=== PATIENT | female | born 1950 | race Caucasian/White ===

== ENCOUNTER 2016-08-10 08:09 | Day surgery (SDC) | payer MEDICARE ==
[~2016-08-10 08:09] MED LIST: FENTANYL 250 MCG/5 ML AMP IV PRN; IV START KIT ONE; LACTATED RINGERS 1,000 ML IV SCH; LACTATED RINGERS 1,000 ML ONE; MIDAZOLAM HCL 5 MG/5 ML VIAL IV PRN
[2016-08-10] MEDS ORDERED: MIDAZOLAM HCL 5 MG/5 ML VIAL ONE (08:19)
[2016-08-10] MEDS ORDERED: FENTANYL 5 ML ONE (08:20)
--- NOTE | 2016-08-12 12:13 | SURGPATH ---
[facility] [address] [place] [id number] Patient Name: TITI MCLAUGHLIN MR#: [id number] : 1950 Gender: F Specimen #: [id number] Collected: 08/10/2016 Received: 08/11/2016 Reported: 08/12/2016 Submitting Phys: TOMÁS BORJA Copy To Phys: [facility] Clinical History / Pre-Operative Diagnosis: HEMOCCULT + STOOL; HISTORY OF ADENOMATOUS POLYPECTOMIES Specimen Source / Surgical Procedure Performed: #1-DESCENDING COLON POLYP AT 35 CM; #2-HEPATIC FLEXURE COLON POLYP X2; #3-SIGMOID POLYP AT 15 CM; #4-RECTAL POLYP AT 10 CM Interpretation: 1. DESCENDING COLON POLYP AT 35 CM: - HYPERPLASTIC POLYP. 2. HEPATIC FLEXURE POLYPS: - TUBULAR ADENOMAS. 3. SIGMOID POLYP AT 15 CM: - HYPERPLASTIC POLYP. 4. RECTAL POLYP AT 10 CM: - HYPERPLASTIC POLYP. Electronically Signed Out Kimberly Lutz M.D. Gross Description: #1 The specimen is received in a formalin filled container labeled with the patient's name and "descending colon polyp at 35 cm". A polypoid monsivais biopsy is 0.3 cm. Totally embedded in cassette #1. #2 The specimen is received in a formalin filled container labeled with the patient's name and "hepatic flexure colon polyps x2". Three monsivais biopsies are 0.3, 0.4 and 0.5 cm. Totally embedded in cassette #2. #3 The specimen is received in a formalin filled container labeled with the patient's name and "sigmoid polyp at 15 cm". A polypoid red-monsivais biopsy is 0.4 x 0.4 x 0.3 cm. Totally embedded in cassette #3. #4 The specimen is received in a formalin filled container labeled with the patient's name and "rectal polyp at 10 cm". A polypoid monsivais biopsy is 0.4 x 0.3 x 0.3 cm. Totally embedded in cassette #4. Yogi Hoyt Microscopic Description: 1. Sections of the descending colon polyp at 35 cm show superficial tufting of the columnar epithelium and crypt serration. There is no evidence of dysplasia. 2. Sections of the hepatic flexure polyps show fragments of colonic mucosa with adenomatous changes. There is no evidence of high-grade dysplasia or invasive carcinoma. 3. Sections of the sigmoid polyp at 15 cm show superficial tufting of the columnar epithelium with crypt serration. There is no evidence of dysplasia. 4. Sections of the rectal polyp at 10 cm show superficial tufting of the columnar epithelium with crypt serration. No dysplasia is identified. 1: [id number] 2: 85210 3: 79303 4: 79489 D12.3 K63.5 K62.1
== END 2016-08-10 09:59 | disposition home or self-care (01) ==
LOC: SDC 08:09
PROVIDERS: ATTEND Internal Medicine Gastroenterology
PROC: 0DBN8ZX Excision of Sigmoid Colon, Via Natural or Artificial Opening Endoscopic, Diagnostic (ICD-10-PCS; principal; 2016-08-10)
PROC: 0DBL8ZX Excision of Transverse Colon, Via Natural or Artificial Opening Endoscopic, Diagnostic (ICD-10-PCS; 2016-08-10)
PROC: 0DBP8ZX Excision of Rectum, Via Natural or Artificial Opening Endoscopic, Diagnostic (ICD-10-PCS; 2016-08-10)
PROC: 0DBL8ZX Excision of Transverse Colon, Via Natural or Artificial Opening Endoscopic, Diagnostic (ICD-10-PCS; 2016-08-10)
PROC: 0DBN8ZX Excision of Sigmoid Colon, Via Natural or Artificial Opening Endoscopic, Diagnostic (ICD-10-PCS; 2016-08-10)
DX: K57.30 Diverticulosis of large intestine without perforation or abscess without bleeding (principal); D12.7 Benign neoplasm of rectosigmoid junction; D12.5 Benign neoplasm of sigmoid colon; D12.3 Benign neoplasm of transverse colon; Z86.010 Personal history of colon polyps; J45.909 Unspecified asthma, uncomplicated
CPT/HCPCS: 45385; J3010; J2250; J7120